=== PATIENT | male | born 1950 | race Caucasian/White ===

== ENCOUNTER → 2018-01-29 01:16 | Emergency (ER) | payer MEDICARE, BC ==
[2018-01-29 01:41] VITALS: BP 133/76
--- OUTSIDE RECORDS SUMMARY | 2018-01-29 01:51 | XMS REPORT ---
:1950 External Reference #:[id number] Author Organization [email or web address] Address [address] [facility] [address] [place] [address] [place] [address] Phone [phone] Care Team Providers Name Role Phone Carmen Vazquez MD Primary Care Physician Unavailable Payers Type Date Identification Numbers Payment Provider Subscriber Medicare Primary Policy Number: [id number] Medicare Jonathan Valladares PayID: [id number] [address] [place] [address] Medigap Part B Expires: 2017 Policy Number: [id number] Medicare Jonathan Wallaceet PayID: [id number] [address] [place] [address] Medigap Part B Effective: 2017 Policy Number: [id number] [facility] Jonathan Wallaceet PayID: [id number] [address] [address] [place] [address] Advance Directives Type Date Description Status Comment Other Directive 01/11/2017 Health Care Proxy Current and Verified Problems Date Description Provider Status Onset: 01/16/2017 Hyperlipidemia Jalen Webb NP Active Onset: 01/16/2017 Essential hypertension Jalen Webb NP Active Onset: 01/16/2017 Depressive disorder Jalen Webb NP Active Onset: 02/24/2017 Asthma without status asthmaticus Jalen Webb NP Active Family History Date Family Member(s) Problem(s) Comments Father Unknown Hx Mother Depression Siblings 3 All half siblings. Healthy Social History Type Date Description Comments Marital Status Lives With ETOH Use Currently consumes alcohol 4-5 drinks/week Smoking Patient has never smoked Recreational Drug Use Never Used Drugs Daily Caffeine Consumes on average 2 cups of regular coffee per day Exercise Type/Frequency Exercises regularly 5xs week treadmill at home for winter Allergies, Adverse Reactions, Alerts Date Description Reaction Status Severity Comments 01/11/2017 NKDA active Medications Medication Date Status Form Strength Qnty SIG Indications Ordering Provider Duloxetine HCL 01/[address] 60mg 30cap 1 by mouth F32.89 Jalen Part s every day TYRELL Webb Methylphenidate 12/01 Active Tablets 36mg 60tab 1 by mouth Breana Hydrochloride ER /2017 ER 24HR s twice daily Varn, N.P. Amlodipine 07/06 Active Tablets 10mg 30tab 1 tab daily Jalen Besylate s TYRELL Webb Proair HFA Active Aerosol 108(90Bas inhale 1 Unknown /0000 e) puff by mcg/Act mouth twice a day if needed Symbicort Active Aerosol 80-4.5mcg 10.2u 2 Jalen /0000 /Act nits inhalations TYRELL Webb twice a day Claritin Active Tablets 10mg once daily Unknown / Atorvastatin Active Tablets 20mg 30tab 1 tab by Jalen Calcium / s mouth daily TYRELL Webb Sildenafil Active Tablets 25mg 1 by mouth Unknown Citrate 30 min before sexual activity as needed. max 1 dose in a day Duloxetine HCL 11/[address] 30mg 30cap 1 by mouth F32.89 Jalen Part s every day TYRELL Webb - 01/19 Triamcinolone 11/08 Hx Cream 0.5% 45gm apply twice Jalen Acetonide daily to the TYRELL Webb - affected 12/19 Medrol 11/08 Hx TBPK 4mg 21uni as directed ts on package TYRELL Webb - 11/15 Viagra 09/23 Hx Tablets 25mg 10tab One tablet Jalen s 30-60 TYRELL Webb - minutes 12/19 prior to intercourse Amoxicillin/Clavu 02/24 Hx Tablets 875-125mg 20tab take one J01.90 Jalen lanate Potassium s tablet q12 TYRELL Webb - hours for 10 03/05 days Guaifenesin-Codei 02/24 Hx Syrup 100-10mg/ 180ml 5-10ml every J01.90 Jalen ne /2017 5ML 4-6 hours Jon, MOBILITY DEVELOPER - for cough 05/24 Methylphenidate 00/00 Hx Tablets 36mg 60tab 1 tab by Jalen HCL ER /0000 ER s mouth twice Jon, MOBILITY DEVELOPER - daily 12/01 Fluoxetine HCL 00/ Hx Capsules 20mg 60cap 1 tab twice Jalen /0000 s daily Jon, MOBILITY DEVELOPER - 11/22 Immunizations CPT Code Status Date Vaccine Reaction Lot # [id number] Given 01/19/2018 Pneumococcal Conjugate No immediat [id number] Vaccine 13 Valent For reaction... Intramuscular Use [id number] Given 01/11/2017 Influenza Virus Vaccine, No immediate [id number] Quadrivalent, Split, reaction... Preservative Free Vital Signs Date Vital Result Comment 01/19/2018 Height 71.5 inches 5'11.50" Weight 189.00 lb Heart Rate 88 /min BP Systolic 118 mmHg BP Diastolic 75 mmHg Body Temperature 96.9 F O2 % BldC Oximetry 99 % BMI (Body Mass Index) 26.0 kg/m2 12/20/2017 Height 71.5 inches 5'11.50" Weight 190.00 lb Heart Rate 82 /min BP Systolic 110 mmHg rue reg cuff BP Diastolic 70 mmHg rue reg cuff BP Systolic Sitting 102 mmHg lue reg cuff BP Diastolic Sitting 64 mmHg lue reg cuff BP Systolic Standing 104 mmHg lue reg cuff BP Diastolic Standing 62 mmHg lue reg cuff Respiratory Rate 16 /min BMI (Body Mass Index) 26.1 kg/m2 11/22/2017 Height 71.5 inches 5'11.50" Weight 187.00 lb Heart Rate 82 /min BP Systolic Sitting 130 mmHg BP Diastolic Sitting 80 mmHg Body Temperature 97.0 F O2 % BldC Oximetry 98 % BMI (Body Mass Index) 25.7 kg/m2 08/23/2017 Height 70.75 inches 5'10.75" Weight 189.25 lb Heart Rate 89 /min BP Systolic 142 mmHg BP Diastolic 78 mmHg BP Systolic Recheck 136 mmHg BP Diastolic Recheck 76 mmHg Body Temperature 96.6 F O2 % BldC Oximetry 98 % BMI (Body Mass Index) 26.6 kg/m2 05/24/2017 Weight 196.00 lb Heart Rate 67 /min BP Systolic 140 mmHg BP Diastolic 89 mmHg BP Systolic Recheck 136 mmHg BP Diastolic Recheck 86 mmHg Body Temperature 97.3 F O2 % BldC Oximetry 96 % 02/24/2017 Weight 194.00 lb Heart Rate 121 /min BP Systolic 134 mmHg left BP Diastolic 80 mmHg left Body Temperature 98.6 F O2 % BldC Oximetry 99 % 01/11/2017 Height 71.5 inches 5'11.50" Weight 197.00 lb Heart Rate 82 /min BP Systolic Sitting 142 mmHg BP Diastolic Sitting 88 mmHg BP Systolic Recheck 140 mmHg BP Diastolic Recheck 86 mmHg O2 % BldC Oximetry 98 % BMI (Body Mass Index) 27.1 kg/m2 Results Test Date Test Result H/L Range Note Laboratory test finding 09/06/2017 PSA Screening 3.772 ng/mL 0-4.000 1 TSH (Thyroid Stim Horm) 1.61 mcIU/mL 0.34-5.60 Testosterone Free & Total 09/06/2017 Free Testosterone ng/dl 10.3 ng/dL 3.47-13.0 2 Testosterone 380 ng/dL 240-950 3 Creatinine 09/06/2017 Creatinine 1.10 mg/dL 0.67-1.17 Egfr Non- 67.0 >60 Egfr 86.1 >60 4 Lipid Profile (Trig/Chol/HDL) 08/02/2017 Triglycerides 118 mg/dL 5 Cholesterol 199 mg/dL 6 HDL Cholesterol 57.1 mg/dL 7 LDL Cholesterol 118 mg/dL 8 Comp Metabolic Panel 08/02/2017 Sodium 141 mmol/L 139-145 Potassium 4.0 mmol/L 3.5-5.0 Chloride 106 mmol/L 101-111 Co2 Carbon Dioxide 26 mmol/L 22-32 Anion Gap 9 mmol/L 2-11 Glucose 101 mg/dL High 70-100 Blood Urea Nitrogen 21 mg/dL 6-24 Creatinine 1.28 mg/dL High 0.67-1.17 BUN/Creatinine Ratio 16.4 8-20 Calcium 9.3 mg/dL 8.6-10.3 Total Protein 6.7 g/dL 6.4-8.9 Albumin 4.3 g/dL 3.2-5.2 Globulin 2.4 g/dL 2-4 Albumin/Globulin Ratio 1.8 1-3 Total Bilirubin 0.80 mg/dL 0.2-1.0 Alkaline Phosphatase 108 U/L High 34-104 Alt 24 U/L 7-52 Ast 25 U/L 13-39 Egfr Non- 56.2 >60 Egfr 72.3 >60 9 1 Serum levels of PSA measured using the [employer] DXI Hybritech immunoassay should not be interpreted as absolute evidence of the presence or absence of disease. The PSA value should be used in conjunction with other pertinent clinical diagnostic procedures. The values obtained with different assay methods or kits cannot be used interchangeably. 2 ADDITIONAL INFORMATION Testing performed by [facility]. This test was developed and its performance characteristics determined by [facility] in a manner consistent with CLIA requirements. This test has not been cleared or approved by the U.S. Food and Drug Administration. 3 ADDITIONAL INFORMATION Testing performed by Liquid Chromatography-Tandem Mass Spectrometry (LC-MS/MS). This test was developed and its performance characteristics determined by [facility] in a manner consistent with CLIA requirements. This test has not been cleared or approved by the U.S. Food and Drug Administration. Test Performed by: [facility] [address] [place] [address] 4 Because ethnic data is not always readily available, this report includes an eGFR for both -Americans and non- Americans. The National Kidney Disease Education Program (NKDEP) does not endorse the use of the MDRD equation for patients that are not between the ages of 18 and 70, are , have extremes of body size, muscle mass, or nutritional status, or are non- or non-. According to the National Kidney Foundation, irrespective of diagnosis, the stage of the disease is based on the level of kidney function: Stage Description GFR(mL/min/1.73 m(2)) 1 Kidney damage with normal or decreased GFR 90 2 Kidney damage with mild decrease in GFR 60-89 3 Moderate decrease in GFR 30-59 4 Severe decrease in GFR 15-29 5 Kidney failure <15 (or dialysis) 5 Desirable: <150 Borderline High: 150-199 High: 200-499 Very High: >500 6 Desirable: <200 Borderline High: 200-239 High: >239 7 Low: <40 Desirable: 40-60 High: >60 8 Desirable: <100 Near Optimal: 100-129 Borderline High: 130-159 High: 160-189 Very High: >189 9 Because ethnic data is not always readily available, this report includes an eGFR for both -Americans and non- Americans. The National Kidney Disease Education Program (NKDEP) does not endorse the use of the MDRD equation for patients that are not between the ages of 18 and 70, are , have extremes of body size, muscle mass, or nutritional status, or are non- or non-. According to the National Kidney Foundation, irrespective of diagnosis, the stage of the disease is based on the level of kidney function: Stage Description GFR(mL/min/1.73 m(2)) 1 Kidney damage with normal or decreased GFR 90 2 Kidney damage with mild decrease in GFR 60-89 3 Moderate decrease in GFR 30-59 4 Severe decrease in GFR 15-29 5 Kidney failure <15 (or dialysis) Procedures Date CPT Code Description Status 12/20/2017 06565 EKG Tracing & Interpretation Completed 11/22/2017 66888 EKG Tracing & Interpretation Completed 08/02/2013 Colonoscopy Completed 06/11/2003 Colonoscopy Completed Encounters Type Date Location Provider CPT E/M Dx Office Visit 12/20/2017 [facility] [place] [address] R94.31 9:00a [facility] FACC E78.5 I10 I44.4 Office Visit 11/22/2017 8:40a [facility] [place] [address] Z00.00 Araceli I10 E78.5 J45.20 Z13.6 F32.89 R94.31 Office Visit 08/23/2017 11:00a [facility] [place] [address] [address] [place] F52.21 Office Visit 05/24/2017 9:40a [facility] [place] [address] [address] [place] Z13.220 Office Visit 02/24/2017 2:00p [facility] [place] [address] [address] [place] J45.21 J01.90 N50.812 Office Visit 01/11/2017 11:00a [facility] [place] [address] Z23 [place] R35.1 I10 Plan of Care Future Appointment(s):04/20/2018 9:00 am - Jalen Webb NP at [facility] Internal Medicine [facility]01/26/2018 8:45 am - Ica ECHO Schedule at [facility]01/26/2018 9:15 am - Roman Kim DO FACC at [facility]11/23/2018 9:40 am - Jalen Webb NP at [facility] Internal Medicine [facility]01/19/2018 - Jalen Webb NPF32.89 Other specified depressive episodesNew Medication:Duloxetine HCL 60 mgComments:I have increased the Duloxetine to 60mg as we discussed.Please let me know if there are any issues.Follow up:3 [id number] Encounter for immunization
== END | disposition left against medical advice (07) ==
LOC: ED 01:16
DX: R33.9 Retention of urine, unspecified (principal); Z53.21 Procedure and treatment not carried out due to patient leaving prior to being seen by health care provider

== ENCOUNTER 2018-01-30 15:06 | Emergency (ER) | payer MEDICARE, BC ==
[2018-01-30 16:28] VITALS: BP 116/73
--- NOTE | 2018-01-30 16:56 | UC ---
Complaint Male HPI - HPI Summary HPI Summary: 68-year-old male comes to urgent care today with a chief complaint of increased urgency and frequency of urination. He also has some spasm and pain when he does urinate in the bladder area. No fevers or chills no flank pain. No nausea or vomiting. He's been drinking lots of water to try to improve the symptoms that's not helping. No history of urinary retention. He reports he recently had his prostate and PSA checked by his primary care doctor has a mild amount of BPH but is not on any medications for BPH. No penile discharge no concern of STI. - History of Current Complaint Chief Complaint: UCGU Stated Complaint: URGENT URINATION Time Seen by Provider: 01/30/18 16:32 Pain Intensity: 5 - Allergies/Home Medications Allergies/Adverse Reactions: Allergies Allergy/AdvReac Type Severity Reaction Status Date / Time No Known Allergies Allergy Verified 01/30/18 16:28 Home Medications: Home Medications DULoxetine DR CAP* [Cymbalta CAP*] 30 mg PO BID 01/30/18 [History Confirmed 08/12] PMH/Surg Hx/FS Hx/Imm Hx Cardiovascular History: Hypertension - Surgical History Surgical History: None - Social History Alcohol Use: Daily Substance Use Type: None Smoking Status (MU): Never Smoked Tobacco Review of Systems Constitutional: Negative Skin: Negative Eyes: Negative ENT: Negative Respiratory: Negative Cardiovascular: Negative Gastrointestinal: Negative Genitourinary: Frequency, Urgency Motor: Negative Neurovascular: Negative Musculoskeletal: Negative Neurological: Negative Psychological: Negative Is Patient Immunocompromised?: No All Other Systems Reviewed And Are Negative: Yes Physical Exam Triage Information Reviewed: Yes Appearance: Well-Appearing, No Pain Distress, Well-Nourished Vital Signs: Initial Vital Signs Temp 98.2 F 01/30/18 16:24 Pulse 87 01/30/18 16:24 Resp 16 01/30/18 16:24 BP 116/73 01/30/18 16:24 Pulse Ox 100 01/30/18 16:24 Vital Signs Reviewed: Yes Eye Exam: Normal Eyes: Positive: Conjunctiva Clear Neck exam: Normal Neck: Positive: Supple Respiratory Exam: Normal Respiratory: Positive: Lungs clear, Normal breath sounds, No respiratory distress Cardiovascular Exam: Normal Cardiovascular: Positive: RRR Abdomen Description: Positive: Nontender, Soft. Negative: CVA Tenderness (R), CVA Tenderness (L) Musculoskeletal Exam: Normal Musculoskeletal: Positive: Strength Intact, ROM Intact Neurological Exam: Normal Neurological: Positive: Alert, Muscle Tone Normal Psychological Exam: Normal Psychological: Positive: Normal Response To Family, Age Appropriate Behavior Skin Exam: Normal Complaint Male Course/Dx - Course Course Of Treatment: Patient has some leukocytes in his urine. Overall the symptoms are consistent with UTI or prostatitis. The plan is to treat with Bactrim for prostatitis. Also had some Flomax to see if that will help decrease the risk of urinary retention. Patient has a follow-up with his doctor tomorrow which I urged him to keep. He is on a couple different medications that potentially could contribute to urinary retention. He's had avoid taking those until she sees tomorrow determine if he should change any of his medication regimen. I let him know that if things get worse overnight he's go the emergency department. - Differential Dx/Diagnosis Provider Diagnoses: UTI Discharge - Sign-Out/Discharge Documenting (check all that apply): Patient Departure All imaging exams completed and their final reports reviewed: No Studies - Discharge Plan Condition: Stable Disposition: HOME Prescriptions: Sulfamethox/Trimethoprim DS* [Bactrim DS 800/160 TAB*] 1 tab PO BID #20 tab Tamsulosin CAP* [Flomax CAP*] 0.4 mg PO DAILY #10 cap Patient Education Materials: Urinary Tract Infection in Men (ED) Referrals: Jalen Webb NP [Primary Care Provider] - Additional Instructions: FOLLOW UP WITH YOUR DOCTOR TOMORROW SCHEDULED. DISCUSS IF YOU NEED TO CHANGE ANY OF THE MEDICATIONS YOU ARE ON. GO TO THE EMERGENCY DEPARTMENT FOR ANY WORSENING OF YOUR CONDITION; PAIN, FEVER , YOU FEEL ILL, YOU ARE UNABLE TO URINATE OR QUESTIONS OR CONCERNS. - Billing Disposition and Condition Condition: STABLE Disposition: Home
== END 2018-01-30 17:33 | disposition home or self-care (01) ==
LOC: UCEAST 15:06
DX: N39.0 Urinary tract infection, site not specified (principal)
CPT/HCPCS: 81003; 87086; 99212; G0463